=== PATIENT | female | born 1990 | race Caucasian/White ===

== ENCOUNTER → 2017-05-12 | Outpatient (CLI) | payer BC ==
[~2017-05-12] MED LIST: ACET-1311 PO; ACNE MED
--- NOTE | 2017-05-12 10:50 | DIAGNOSTIC IMAGING REPORT ---
MRI OF THE BRAIN WITHOUT CONTRAST CLINICAL HISTORY: A88.1 episodic VERITGO, R20.2 PARESTHESIA OF SKIN COMPARISON STUDY: None. FINDINGS: Sagittal T1, axial diffusion, proton density and T2 weighted axial, coronal FLAIR, and axial T1-weighted images were acquired. No intra or extra-axial mass lesions are visualized Axial diffusion-weighted images reveal no evidence of acute or subacute infarction. There is no evidence of ventricular dilatation. Proton density T2-weighted and FLAIR images reveal no significant intraparenchymal signal abnormalities. There are no abnormal flow voids. IMPRESSION: Normal MRI of the brain Electronically signed by: Angel Simon M.D. 05/12/2017 10:48 AM Dictated Date/Time: 05/12/2017 10:45 AM
== END | disposition home or self-care (01) ==
LOC: C.MRI 09:54
PROVIDERS: ATTEND Family Medicine
DX: A88.1 Epidemic vertigo (principal); R20.2 Paresthesia of skin

== ENCOUNTER → 2017-07-08 | Outpatient (CLI) | payer BC | END | disposition home or self-care (01) | LOC: C.PAPS 10:02 | PROVIDERS: ATTEND Obstetrics & Gynecology | DX: Z01.419 Encounter for gynecological examination (general) (routine) without abnormal findings (principal) ==

== ENCOUNTER → 2017-07-08 | Outpatient (CLI) | payer BC ==
[2017-07-12 06:11] LABS: CHLAMYDIA TRACH RNA*** NOT DETECTED (NOT DETECTED); GC (NEIS GONORRHOEAE)RNA** NOT DETECTED (NOT DETECTED)
== END | disposition home or self-care (01) ==
LOC: C.LABSPEC 17:48
PROVIDERS: ATTEND Obstetrics & Gynecology
DX: Z11.3 Encounter for screening for infections with a predominantly sexual mode of transmission (principal)